=== PATIENT | female | born 1975 | race Caucasian/White ===

== ENCOUNTER 2024-01-04 07:21 | Outpatient (CLI) | payer BC, OTHER | END 2024-01-04 23:59 | disposition home or self-care (01) | LOC: MRI 07:21 | PROVIDERS: ATTEND Podiatrist Foot & Ankle Surgery | DX: M21.172 Varus deformity, not elsewhere classified, left ankle (principal); M77.52 Other enthesopathy of left foot and ankle; M65.872 Other synovitis and tenosynovitis, left ankle and foot; M79.671 Pain in right foot; M79.672 Pain in left foot; M25.372 Other instability, left ankle; M25.371 Other instability, right ankle; M25.471 Effusion, right ankle; M25.472 Effusion, left ankle; M21.6X1 Other acquired deformities of right foot; M21.6X2 Other acquired deformities of left foot | CPT/HCPCS: 73721 ==